=== PATIENT | female | born 1985 | race Caucasian/White ===

== ENCOUNTER → 2017-12-26 | Outpatient (CLI) | payer BC ==
[2013-12-22 01:45] VITALS: BP 137/98
[~2017-12-26] MED LIST: AMBIENPAK5 MG PO; EFFEXOR75 MG PO; NO HOME MEDICATIONS; NORCO 325 MG-51 TAB PO
[2017-12-26 12:24] LABS: HEMATOCRIT 40.5 % (37.0-47.0); HEMOGLOBIN 13.2 g/dL (12.5-16.0); MEAN PLATELET VOLUME 9.7 fl (7.4-10.4); RED BLOOD COUNT 4.57 M/mm3 (4.10-5.30); RED CELL DISTRIBUTION WIDTH 13.9 % (11.5-14.5); WHITE BLOOD COUNT 9.3 K/mm3 (4.8-10.8)
[2017-12-26 12:50] LABS: ALBUMIN 4.1 g/dL (3.5-5.0); BUN/CREATININE RATIO 19.7 (6.0-26.0); POTASSIUM 4.1 mmol/L (3.6-5.0); TOTAL BILIRUBIN 0.4 mg/dL (0.2-1.3); TOTAL PROTEIN 7.5 g/dL (6.3-8.2)
== END ==
LOC: LAB 12:12
PROVIDERS: Family Medicine
DX: E66.9 Obesity, unspecified (principal)

== ENCOUNTER → 2018-07-17 | Outpatient (CLI) | payer BC, OTHER ==
[2013-12-22 01:45] VITALS: BP 137/98
== END ==
LOC: LAB 17:03
DX: N76.0 Acute vaginitis (principal)

== ENCOUNTER → 2018-10-23 | Outpatient (CLI) | payer BC, OTHER ==
[2013-12-22 01:45] VITALS: BP 137/98
[2018-10-23 17:23] LABS: EOS # 0.2 (0.04-0.40); EOS % 2.5 % (1.0-5.0); HEMATOCRIT 39.4 % (37.0-47.0); HEMOGLOBIN 12.9 g/dL (12.5-16.0); LYMPH# 2.7 (1.50-4.00); MEAN CELL VOLUME 89 fl (78-100); MEAN CORPUSCULAR HEMOGLOBIN 29 pg (27-31); MEAN CORPUSCULAR HGB CONC 33 g/dL (33-37); MONO # 0.7 (0.20-0.80); NEU # 5.8 (1.40-6.50); PLATELET COUNT 393 K/mm3 (130-400); RED BLOOD COUNT 4.45 M/mm3 (4.10-5.30); RED CELL DISTRIBUTION WIDTH 12.9 % (11.5-14.5); WHITE BLOOD COUNT 9.5 K/mm3 (4.8-10.8)
[2018-10-23 17:27] LABS: ALBUMIN 4.4 g/dL (3.5-5.0); CALCIUM 9.2 mg/dL (8.4-10.2); POTASSIUM 3.9 mmol/L (3.6-5.0); TOTAL BILIRUBIN 0.2 mg/dL (0.2-1.3); TOTAL PROTEIN 7.5 g/dL (6.3-8.2)
== END ==
LOC: LAB 16:51
PROVIDERS: Family Medicine
DX: R53.83 Other fatigue (principal)

== ENCOUNTER → 2019-04-23 | Outpatient (CLI) | payer BC ==
[~2019-04-23] VITALS: Ht 162.6 cm; Wt 107.7 kg
[~2019-04-23] MED LIST changes: +KLONOPIN 1MG1 MG PO; +MOBIC7.5 MG PO; +PERCOCET 325 MG1 TA2 PO
[2019-04-23 13:02] LABS: D-DIMER 0.03 mg/L FEU (0.15-0.50)
[2019-04-23 13:35] VITALS: BP 132/87
== END ==
LOC: LAB 12:17
PROVIDERS: Family Medicine
DX: R07.9 Chest pain, unspecified (principal)

== ENCOUNTER 2019-08-28 21:06 | Emergency (ER) | payer BC ==
[2019-08-28] MEDS ORDERED: ZOLPIDEM TART12.5 MG PO (21:24)
[2019-08-28 21:53] LABS: PH-URINE 5.5 (5.0 - 8.0); URINE APPEARANCE CLOUDY; URINE BILIRUBIN NEGATIVE (NEGATIVE); URINE BLOOD 250 ery/uL (NEGATIVE); URINE COLOR YELLOW; URINE GLUCOSE NEGATIVE (NEGATIVE); URINE KETONE NEGATIVE (NEGATIVE); URINE LEUKOCYTE ESTERASE NEGATIVE (NEGATIVE); URINE NITRATE NEGATIVE (NEGATIVE); URINE PROTEIN(semi-quant) TRACE mg/dL (NEGATIVE); URINE UROBILINOGEN NORMAL (NORMAL)
[2019-08-28 22:53] LABS: URINE APPEARANCE HAZY; URINE COLOR YELLOW
[2019-08-28 22:54] LABS: PH-URINE 6.5 (5.0 - 8.0); URINE BILIRUBIN NEGATIVE (NEGATIVE); URINE BLOOD 50 ery/uL (NEGATIVE); URINE GLUCOSE NEGATIVE (NEGATIVE); URINE KETONE NEGATIVE (NEGATIVE); URINE LEUKOCYTE ESTERASE NEGATIVE (NEGATIVE); URINE NITRATE NEGATIVE (NEGATIVE); URINE PROTEIN(semi-quant) NEGATIVE (NEGATIVE); URINE UROBILINOGEN NORMAL (NORMAL); URINE WBC 0-1 /hpf (0-3)
[2019-08-28 23:17] LABS: EOS # 0.3 (0.04-0.40); EOS % 2.7 % (1.0-5.0); HEMATOCRIT 36.9 % (37.0-47.0); HEMOGLOBIN 11.8 g/dL (12.5-16.0); LYMPH# 3.3 (1.50-4.00); MEAN CELL VOLUME 89 fl (78-100); MEAN CORPUSCULAR HEMOGLOBIN 28 pg (27-31); MEAN CORPUSCULAR HGB CONC 32 g/dL (33-37); MONO # 0.6 (0.20-0.80); NEU # 5.2 (1.40-6.50); PLATELET COUNT 312 K/mm3 (130-400); RED BLOOD COUNT 4.17 M/mm3 (4.10-5.30); RED CELL DISTRIBUTION WIDTH 12.7 % (11.5-14.5); WHITE BLOOD COUNT 9.4 K/mm3 (4.8-10.8)
[2019-08-28 23:45] VITALS: BP 139/96
== END 2019-08-28 23:46 | disposition home or self-care (01) ==
LOC: ED 21:06
PROVIDERS: Nurse Practitioner Family
DX: M54.5 Low back pain (principal); R35.0 Frequency of micturition; F41.9 Anxiety disorder, unspecified; F32.9 Major depressive disorder, single episode, unspecified; Z87.442 Personal history of urinary calculi
CPT/HCPCS: J1885; J2405; J7030

== ENCOUNTER → 2020-02-07 | Outpatient (CLI) | payer BC ==
[~2020-02-07] MED LIST changes: +ZOLPIDEM TART12.5 MG PO
== END ==
LOC: LAB 12:33
DX: J02.9 Acute pharyngitis, unspecified (principal); R11.0 Nausea; R51 Headache

== ENCOUNTER 2020-04-28 15:08 | Emergency (ER) | payer BC ==
[~2020-04-28] VITALS: Wt 107.2 kg
[2020-04-28] MEDS ORDERED: SUMATRIPTAN SUC25 M2 PO (15:29)
[2020-04-28 16:00] LABS: BASO # 0.1 (0.02-0.10); EOS # 0.2 (0.04-0.40); EOS % 2.3 % (1.0-5.0); HEMATOCRIT 41.1 % (37.0-47.0); HEMOGLOBIN 13.5 g/dL (12.5-16.0); LYMPH# 2.9 (1.50-4.00); MEAN CELL VOLUME 89 fl (78-100); MEAN CORPUSCULAR HEMOGLOBIN 29 pg (27-31); MEAN CORPUSCULAR HGB CONC 33 g/dL (33-37); MEAN PLATELET VOLUME 10.3 fl (7.4-10.4); MONO # 0.8 (0.20-0.80); NEU # 6.4 (1.40-6.50); PLATELET COUNT 368 K/mm3 (130-400); RED BLOOD COUNT 4.63 M/mm3 (4.10-5.30); RED CELL DISTRIBUTION WIDTH 12.7 % (11.5-14.5); WHITE BLOOD COUNT 10.4 K/mm3 (4.8-10.8)
[2020-04-28 16:09] LABS: ALBUMIN 4.4 g/dL (3.5-5.0); POTASSIUM 3.9 mmol/L (3.5-5.1); SODIUM 139 mmol/L (136-145)
[2020-04-28 16:10] LABS: CALCIUM 9.3 mg/dL (8.3-10.5)
[2020-04-28 16:11] LABS: GLUCOSE 88 mg/dL (65-105); TOTAL PROTEIN 7.9 g/dL (6.4-8.3)
[2020-04-28 16:13] LABS: CARBON DIOXIDE 23 mmol/L (22-29); TOTAL BILIRUBIN 0.2 mg/dL (0.2-1.2)
[2020-04-28 16:17] LABS: AST-SGOT 17 U/L (5-34)
[2020-04-28 16:18] LABS: ALT/SGPT 25 U/L (0-55)
[2020-04-28 17:03] LABS: TROPONIN-I < 0.03 ng/mL (<0.030)
[2020-04-28 17:31] LABS: PH-URINE 5.5 (5.0 - 8.0); URINE APPEARANCE CLEAR; URINE BILIRUBIN NEGATIVE (NEGATIVE); URINE BLOOD TRACE (NEGATIVE); URINE COLOR YELLOW; URINE GLUCOSE NEGATIVE (NEGATIVE); URINE KETONE NEGATIVE (NEGATIVE); URINE LEUKOCYTE ESTERASE NEGATIVE (NEGATIVE); URINE NITRATE NEGATIVE (NEGATIVE); URINE PROTEIN(semi-quant) NEGATIVE (NEGATIVE); URINE UROBILINOGEN NORMAL (NORMAL); URINE WBC 0-1 /hpf (0-3)
[2020-04-28 17:43] LABS: D-DIMER 0.05 mg/L FEU (0.15-0.50)
[2020-04-28] MEDS ORDERED: PROAIR HFA0.09 MG/AC IH (18:31)
[2020-04-28 19:25] VITALS: BP 134/97
== END 2020-04-28 19:27 | disposition home or self-care (01) ==
LOC: ED 15:08
PROVIDERS: Nurse Practitioner Family
DX: J20.9 Acute bronchitis, unspecified (principal); I10 Essential (primary) hypertension; G43.909 Migraine, unspecified, not intractable, without status migrainosus; Z20.828 Contact with and (suspected) exposure to other viral communicable diseases; Z86.19 Personal history of other infectious and parasitic diseases
CPT/HCPCS: J2060; J7030

== ENCOUNTER 2020-08-29 19:39 | Emergency (ER) | payer BC ==
[~2020-08-29] VITALS: Ht 162.6 cm; Wt 91.6 kg
[~2020-08-29 19:39] MED LIST changes: +PROAIR HFA0.09 MG/AC IH; +SUMATRIPTAN SUC25 M2 PO
[2020-08-29] MEDS ORDERED: PROZAC20 M1 PO (19:59)
[2020-08-29 20:44] LABS: EOS # 0.2 (0.04-0.40); EOS % 1.9 % (1.0-5.0); HEMATOCRIT 39.8 % (37.0-47.0); HEMOGLOBIN 13.1 g/dL (12.5-16.0); LYMPH# 2.8 (1.50-4.00); MEAN CELL VOLUME 88 fl (78-100); MEAN CORPUSCULAR HEMOGLOBIN 29 pg (27-31); MEAN CORPUSCULAR HGB CONC 33 g/dL (33-37); MONO # 0.8 (0.20-0.80); NEU # 6.1 (1.40-6.50); PLATELET COUNT 304 K/mm3 (130-400); RED CELL DISTRIBUTION WIDTH 13.2 % (11.5-14.5); WHITE BLOOD COUNT 9.9 K/mm3 (4.8-10.8)
[2020-08-29 20:52] LABS: URINE APPEARANCE CLEAR; URINE BILIRUBIN NEGATIVE (NEGATIVE); URINE BLOOD TRACE (NEGATIVE); URINE COLOR YELLOW; URINE GLUCOSE NEGATIVE (NEGATIVE); URINE KETONE NEGATIVE (NEGATIVE); URINE LEUKOCYTE ESTERASE NEGATIVE (NEGATIVE); URINE MUCUS PRESENT (NOT PRESENT); URINE NITRATE NEGATIVE (NEGATIVE); URINE PROTEIN(semi-quant) NEGATIVE (NEGATIVE); URINE UROBILINOGEN NORMAL (NORMAL); URINE WBC 0-1 /hpf (0-3)
[2020-08-29 20:53] LABS: POTASSIUM 3.6 mmol/L (3.5-5.1)
[2020-08-29 20:54] LABS: CALCIUM 9.2 mg/dL (8.3-10.5)
[2020-08-29 22:52] VITALS: BP 122/72
== END 2020-08-29 22:54 | disposition home or self-care (01) ==
LOC: ED 19:39
PROVIDERS: Family Medicine
DX: R10.31 Right lower quadrant pain (principal); Z32.02 Encounter for pregnancy test, result negative
CPT/HCPCS: J1885

== ENCOUNTER → 2020-09-08 | Outpatient (CLI) | payer BC ==
[2020-08-29 22:52] VITALS: BP 122/72
[~2020-09-08] MED LIST changes: +PROZAC20 M1 PO
== END ==
LOC: LAB 07:28
DX: J02.9 Acute pharyngitis, unspecified (principal); R51.9 Headache, unspecified; Z20.828 Contact with and (suspected) exposure to other viral communicable diseases

== ENCOUNTER → 2020-11-24 | Outpatient (CLI) | payer BC ==
[~2020-11-24] VITALS: Ht 162.6 cm; Wt 88.6 kg
[~2020-11-24] MED LIST changes: +LUNESTA1 M1 PO
[2020-11-24 15:42] VITALS: BP 136/85
[2020-11-24 16:50] VITALS: BP 129/93
== END ==
LOC: AMSURD 14:54
DX: G43.909 Migraine, unspecified, not intractable, without status migrainosus (principal)
CPT/HCPCS: J1885; J2550; J3490; J7030

== ENCOUNTER → 2021-01-07 | Outpatient (CLI) | payer BC ==
[2020-11-24 16:50] VITALS: BP 129/93
== END ==
LOC: LAB 12:35
DX: Z20.822 Contact with and (suspected) exposure to COVID-19 (principal)

== ENCOUNTER → 2021-04-02 | Outpatient (CLI) | payer BC ==
[2021-04-02 10:36] LABS: BASO # 0.06 (0.02-0.10); EOS # 0.18 (0.04-0.40); EOS % 1.9 % (1.0-5.0); HEMATOCRIT 41.2 % (37.0-47.0); HEMOGLOBIN 13.6 g/dL (12.5-16.0); LYMPH# 2.54 (1.50-4.00); MEAN CELL VOLUME 89 fl (78-100); MEAN CORPUSCULAR HEMOGLOBIN 29 pg (27-31); MEAN CORPUSCULAR HGB CONC 33 g/dL (33-37); MEAN PLATELET VOLUME 9.2 fl (7.4-10.4); MONO # 0.59 (0.20-0.80); NEU # 5.93 (1.40-6.50); PLATELET COUNT 317 K/mm3 (130-400); RED BLOOD COUNT 4.65 M/mm3 (4.10-5.30); RED CELL DISTRIBUTION WIDTH 12.4 % (11.5-14.5); WHITE BLOOD COUNT 9.3 K/mm3 (4.8-10.8)
[2021-04-02 10:48] LABS: ALBUMIN 4.2 g/dL (3.5-5.0); POTASSIUM 4.5 mmol/L (3.5-5.1)
[2021-04-02 10:49] LABS: CALCIUM 8.9 mg/dL (8.3-10.5)
[2021-04-02 10:50] LABS: TOTAL PROTEIN 7.4 g/dL (6.4-8.3)
[2021-04-02 10:52] LABS: TOTAL BILIRUBIN 0.3 mg/dL (0.2-1.2)
== END ==
LOC: LAB 10:13
PROVIDERS: Family Medicine
DX: Z00.00 Encounter for general adult medical examination without abnormal findings (principal)

== ENCOUNTER → 2021-04-27 | Outpatient (CLI) | payer BC | LOC: LAB 15:14 | DX: U07.1 COVID-19 (principal); R11.2 Nausea with vomiting, unspecified ==

== ENCOUNTER → 2021-08-20 | Outpatient (CLI) | payer BC | LOC: RAD 09:12 | DX: G44.309 Post-traumatic headache, unspecified, not intractable (principal) ==

== ENCOUNTER 2021-11-03 15:38 | Emergency (ER) | payer BC ==
[2021-11-03] MEDS ORDERED: SUMATRIPTAN SU100 MG PO (16:01)
[2021-11-03] MEDS ORDERED: ZOLPIDEM TART12.5 MG PO (16:01)
[2021-11-03] MEDS ORDERED: FLUOXETINE40 MG PO (16:01)
[2021-11-03] MEDS ORDERED: ALPRAZOLAM1 MG PO (16:01)
[2021-11-03] MEDS ORDERED: CYCLOBENZAPRINE10 M1 PO (16:01)
[2021-11-03 17:02] LABS: BASO # 0.06 K/mm3 (0.02-0.10); EOS # 0.21 K/mm3 (0.04-0.40); EOS % 2.6 % (1.0-5.0); HEMATOCRIT 41.4 % (37.0-47.0); HEMOGLOBIN 13.3 g/dL (12.5-16.0); LYMPH# 2.28 K/mm3 (1.50-4.00); MEAN CELL VOLUME 91 fl (78-100); MEAN CORPUSCULAR HEMOGLOBIN 29 pg (27-31); MEAN CORPUSCULAR HGB CONC 32 g/dL (33-37); MEAN PLATELET VOLUME 9.3 fl (7.4-10.4); MONO # 0.63 K/mm3 (0.20-0.80); NEU # 4.97 K/mm3 (1.40-6.50); PLATELET COUNT 353 K/mm3 (130-400); RED BLOOD COUNT 4.54 M/mm3 (4.10-5.30); RED CELL DISTRIBUTION WIDTH 12.1 % (11.5-14.5); WHITE BLOOD COUNT 8.2 K/mm3 (4.8-10.8)
[2021-11-03 17:17] LABS: ALBUMIN 4.2 g/dL (3.5-5.0)
[2021-11-03 17:18] LABS: CALCIUM 8.9 mg/dL (8.3-10.5)
[2021-11-03 17:19] LABS: TOTAL PROTEIN 7.2 g/dL (6.4-8.3)
[2021-11-03 17:21] LABS: TOTAL BILIRUBIN 0.2 mg/dL (0.2-1.2)
[2021-11-03 17:28] LABS: URINE APPEARANCE CLEAR; URINE COLOR YELLOW
[2021-11-03 17:29] LABS: URINE BILIRUBIN NEGATIVE (NEGATIVE); URINE BLOOD 50 ery/uL (NEGATIVE); URINE GLUCOSE NEGATIVE (NEGATIVE); URINE KETONE NEGATIVE (NEGATIVE); URINE LEUKOCYTE ESTERASE NEGATIVE (NEGATIVE); URINE MUCUS PRESENT (NOT PRESENT); URINE NITRATE NEGATIVE (NEGATIVE); URINE PROTEIN(semi-quant) TRACE (NEGATIVE); URINE UROBILINOGEN NORMAL (NORMAL)
[2021-11-03 17:51] VITALS: BP 112/72
== END 2021-11-03 18:08 | disposition home or self-care (01) ==
LOC: ED 15:38
PROVIDERS: Physician Assistant
DX: F07.81 Postconcussional syndrome (principal); M54.2 Cervicalgia; F32.A Depression, unspecified; F41.9 Anxiety disorder, unspecified; Z79.899 Other long term (current) drug therapy
CPT/HCPCS: J1885; J2360

== ENCOUNTER → 2021-11-04 | Outpatient (CLI) | payer BC ==
[~2021-11-04] MED LIST changes: +ALPRAZOLAM1 MG PO; +CYCLOBENZAPRINE10 M1 PO; +FLUOXETINE40 MG PO; +SUMATRIPTAN SU100 MG PO
== END ==
LOC: RAD 16:32
DX: F07.81 Postconcussional syndrome (principal)

== ENCOUNTER → 2022-02-16 | Outpatient (CLI) | payer BC | LOC: LAB 13:01 | DX: Z20.822 Contact with and (suspected) exposure to COVID-19 (principal) ==

== ENCOUNTER 2023-10-26 14:43 | Outpatient (RCR) | payer BC | END 2023-11-15 | disposition home or self-care (01) | LOC: PT | DX: M54.2 Cervicalgia (principal) ==

== ENCOUNTER 2023-11-17 08:00 | Outpatient (RCR) | payer BC | END 2023-12-14 | disposition home or self-care (01) | LOC: PT | DX: M54.2 Cervicalgia (principal) ==

== ENCOUNTER → 2024-12-26 | Outpatient (CLI) | payer BC | LOC: MAMMO 13:13 | DX: Z12.31 Encounter for screening mammogram for malignant neoplasm of breast (principal) ==

== ENCOUNTER → 2025-01-31 | Outpatient (CLI) | payer BC ==
[2025-01-31 08:36] LABS: BASO # 0.03 K/mm3 (0.02-0.10); EOS # 0.14 K/mm3 (0.04-0.40); EOS % 1.8 % (1.0-5.0); HEMATOCRIT 39.8 % (37.0-47.0); HEMOGLOBIN 12.6 g/dL (12.5-16.0); LYMPH# 2.06 K/mm3 (1.50-4.00); MEAN CELL VOLUME 95 fl (78-100); MEAN CORPUSCULAR HEMOGLOBIN 30 pg (27-31); MEAN CORPUSCULAR HGB CONC 32 g/dL (33-37); MEAN PLATELET VOLUME 9.8 fl (7.4-10.4); MONO # 0.46 K/mm3 (0.20-0.80); NEU # 4.96 K/mm3 (1.40-6.50); PLATELET COUNT 341 K/mm3 (130-400); RED BLOOD COUNT 4.18 M/mm3 (4.10-5.30); RED CELL DISTRIBUTION WIDTH 12.9 % (11.5-14.5); WHITE BLOOD COUNT 7.7 K/mm3 (4.8-10.8)
[2025-01-31 08:40] LABS: ALBUMIN 4.2 g/dL (3.5-5.0)
[2025-01-31 08:41] LABS: CALCIUM 8.7 mg/dL (8.3-10.5)
[2025-01-31 08:43] LABS: TOTAL PROTEIN 7.4 g/dL (6.4-8.3)
[2025-01-31 08:45] LABS: TOTAL BILIRUBIN 0.5 mg/dL (0.2-1.2)
== END ==
LOC: LAB 07:16
PROVIDERS: Nurse Practitioner
DX: Z00.00 Encounter for general adult medical examination without abnormal findings (principal); E78.5 Hyperlipidemia, unspecified